=== PATIENT | female | born 2005 | race Caucasian/White ===

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

== ENCOUNTER → 2023-02-16 | Outpatient (CLI) | payer OTHER ==
--- NOTE | 2023-02-16 15:10 | US ---
EXAMINATION TYPE: US abdomen complete DATE OF EXAM: 02/16/2023 COMPARISON: CLINICAL HISTORY: K59.00. Generalized abdomen pain. TECHNIQUE: Multiple sonographic images of the abdomen are obtained. FINDINGS: EXAM MEASUREMENTS: Liver Length: 16.5 cm Gallbladder Wall: 0.2 cm CBD: 0.2 cm Spleen: 9.5 cm Right Kidney: 11.6 x 4.9 x 2.8 cm Left Kidney: 10.0 x 4.4 x 4.8 cm Pancreas: Limited visualization of head Liver: wnl Gallbladder: wnl Evidence for sonographic Dong's sign: neg CBD: wnl Spleen: Isoechoic circular lesion adjacent to spleen, accessory spleen? = 1.5 x 1.4 x 1.1 cm Right Kidney: No hydronephrosis or masses seen Left Kidney: No hydronephrosis or masses seen Upper IVC: wnl Abd Aorta: No AAA visualized at time of scan IMPRESSION: 1. Abdomen ultrasound as visualized appears unremarkable.
== END | disposition home or self-care (01) ==
LOC: RADUSWWP 08:09
PROVIDERS: ATTEND Family Medicine
DX: K59.00 Constipation, unspecified (principal)
CPT/HCPCS: 76700

== ENCOUNTER → 2023-12-07 | Outpatient (CLI) | payer OTHER ==
--- NOTE | 2023-12-07 15:52 | XR ---
EXAMINATION TYPE: XR knee complete LT DATE OF EXAM: 12/07/2023 COMPARISON: 02/04/2023 HISTORY: 18-year-old female M25.562, left knee pain TECHNIQUE: AP, oblique, and lateral views FINDINGS: The extensor mechanism is intact. No knee joint effusion. No acute fracture, subluxation, dislocation . IMPRESSION: No acute osseous abnormality seen.
== END | disposition home or self-care (01) ==
LOC: RADXRMAIN 12:33
PROVIDERS: ATTEND Family Medicine
DX: M25.562 Pain in left knee (principal)

== ENCOUNTER → 2024-02-15 | Outpatient (CLI) | payer OTHER ==
--- NOTE | 2024-02-15 16:19 | CT ---
EXAMINATION TYPE: CT abdomen pelvis w con CT DLP: 338.9 mGycm, Automated exposure control for dose reduction was used. DATE OF EXAM: 02/15/2024 2:18 PM COMPARISON: CT abdomen and pelvis 05/03/2022 CLINICAL INDICATION:Female, 18 years old with history of R10.813 RLQ TENDERNESS; RLQ pain TECHNIQUE: Axial CT abdomen pelvis w con;Sagittal and coronal reformats were created on a separate w orkstation. Contrast used:100ml mL of Isovue 370 with IV Contrast, (none if empty) Oral contrast used: with Oral Contrast (none if empty) FINDINGS: LOWER CHEST: Lungs are clear. No pleural effusions. ABDOMEN LIVER: Unremarkable GALLBLADDER AND BILE DUCTS: Unremarkable. PANCREAS: Unremarkable. SPLEEN: Unremarkable. ADRENAL GLANDS: Unremarkable. KIDNEYS AND URETERS: No evidence of hydronephrosis or renal calculus. The ureters are unremarkable. PELVIS BLADDER: Unremarkable REPRODUCTIVE: Unremarkable. ABDOMEN & PELVIS STOMACH AND BOWEL: Stomach and duodenum are unremarkable No evidence of bowel obstruction. PERITONEUM/RETROPERITONEUM: No evidence of pneumoperitoneum. Small amount of free fluid in the pelvis . Most frequently the amount of free fluid is physiologic, but remains nonspecific. VASCULATURE: No evidence of aortic aneurysm. MUSCULOSKELETAL: No acute osseous abnormalities LYMPH NODES: No gross evidence for lymphadenopathy. SOFT TISSUE/ABDOMINAL WALL: Unremarkable IMPRESSION: 1. No definite acute process is identified. 2. Small amount free fluid in the pelvis. No free air.
== END | disposition home or self-care (01) ==
LOC: RADCTMAIN 12:30
PROVIDERS: ATTEND Family Medicine
DX: R10.813 Right lower quadrant abdominal tenderness (principal); R10.31 Right lower quadrant pain
CPT/HCPCS: 74177; Q9967

== ENCOUNTER 2024-04-16 20:54 | Emergency (ER) | payer OTHER ==
[2024-04-16 21:22] VITALS: TEMP 98.1
--- NOTE | 2024-04-16 22:24 | ED ---
Skin/Abscess/FB HPI - General Source: patient, RN notes reviewed Mode of arrival: ambulatory Limitations: no limitations <Sofi Linares - Last Filed: 04/16/24 22:21> <Sanjay Chin - Last Filed: 04/16/24 22:56> - General Chief complaint: Skin/Abscess/Foreign Body Stated complaint: Rash Time Seen by Provider: 04/16/24 22:21 - History of Present Illness Initial comments: Quick [id number] female with no significant past medical history presenting with rash on left side of face x 2 days. States she woke up with a red "bump" near her left shinto and has since spread along the forehead and into the cheek. She believes she may have been bit by a spider because she states she lives in a basement and often sees spiders. She describes the rash as burning and itchy. Denies vision changes, nausea, vomiting, fever. She has never had this rash before. Denies recent travel. States she believes she had chickenpox as a child but denies shingles. (Sofi Linares) Dictation was produced using [employer] dictation software. please excuse any grammatical, word or spelling errors. Chief Complaint: 19-year-old female presents with left facial rash History of Present Illness: Patient 19-year-old female presents with left facial rash. Rash has been seemingly getting worse for the last 2 to 3 days. Denies any pain. States that it slightly itchy. States that it appears scaly in the morning. Denies that it is crusty. Patient has no other complaints. The ROS documented in this emergency department record has been reviewed and confirmed by me. Those systems with pertinent positive or negative responses have been documented in the HPI. All other systems are other negative and/or noncontributory. (Sanjay Chin) - Related Data Previous Rx's Medication Instructions Recorded Ibuprofen [Motrin] 600 mg PO Q8HR PRN #30 tab 05/15/22 Cephalexin [Keflex] 500 mg PO BID 5 Days #10 cap 06/25/22 Ketorolac [Toradol] 10 mg PO Q6HR #15 tab 09/06/22 Terbinafine 1% Cream [LamISIL] 1 applic TOPICAL BID 7 Days #15 gm 04/16/24 Allergies Allergy/AdvReac Type Severity Reaction Status Date / Time bee sting Allergy Severe Swelling Uncoded 04/16/24 21:03 Review of Systems ROS Other: All systems not noted in ROS Statement are negative. <Sofi Linares - Last Filed: 04/16/24 22:21> ROS Other: All systems not noted in ROS Statement are negative. <Sanjay Chin - Last Filed: 04/16/24 22:56> ROS Statement: Those systems with pertinent positive or pertinent negative responses have been documented in the HPI. Past Medical History Past Medical History: No Reported History Additional Past Medical History / Comment(s): UTI History of Any Multi-Drug Resistant Organisms: ESBL Date of last positivie culture/infection: 07/23/21 ESBL E.coli MDRO Source:: Urine Past Surgical History: No Surgical Hx Reported Additional Past Surgical History / Comment(s): wisdom teeth Past Psychological History: Anxiety, Depression Smoking Status: Current every day smoker, Vaper Past Alcohol Use History: Occasional Past Drug Use History: Marijuana <Sofi Linares - Last Filed: 04/16/24 22:21> General Exam Limitations: no limitations <Sofi Linares - Last Filed: 04/16/24 22:21> <Sanjay Chin - Last Filed: 04/16/24 22:56> - General Exam Comments Initial Comments: Visual Physical Exam Vital signs reviewed General: Well-appearing, nontoxic, no acute distress. Head: Normocephalic, atraumatic Eyes: PERRLA, EOMI ENT: Airway patent Chest: Nonlabored breathing Skin: normal skin tone Neuro: Alert and oriented 3 Musculoskeletal: No gross abnormalities (Sofi Linares) Visual Physical Exam Vital signs reviewed General: Well-appearing, nontoxic, no acute distress. Head: Normocephalic, atraumatic Eyes: PERRLA, EOMI ENT: Airway patent Chest: Nonlabored breathing Skin: No visual rash, normal skin tone Face: non Blanching erythematous slightly superficially scaly, nonindurated, raised Neuro: Alert and oriented 3 Musculoskeletal: No gross abnormalities (Sanjay Chin) Course Vital Signs 04/16/24 20:58 Temperature 98.1 F Pulse Rate 76 Respiratory 22 Rate Blood Pressure 146/77 O2 Sat by Pulse 100 Oximetry Medical Decision Making <VijaySofi - Last Filed: 04/16/24 22:21> <Sanjay Chin - Last Filed: 04/16/24 22:56> - Medical Decision Making I completed the quick note portion of this chart signed Sofi Linares PA-C (Sofi Linares) Was pt. sent in by a medical professional or institution (, PA, ACADEMIC SUPPORT ASSISTANT, urgent care, hospital, or longterm...) When possible be specific @ -No Did you speak to anyone other than the patient for history (EMS, parent, family, police, friend...)? What history was obtained from this source @ -No Did you review nursing and triage notes (agree or disagree)? Why? @ -I reviewed and agree with nursing and triage notes Were old charts reviewed (outside hosp., previous admission, EMS record, old EKG, old radiological studies, urgent care reports/EKG's, longterm records)? Report findings @ -No old charts were reviewed Differential Diagnosis (chest pain, altered mental status, abdominal pain women, abdominal pain men, vaginal bleeding, musculoskeletal, weakness, fever, dyspnea, syncope, headache, dizziness, GI bleed, back pain, seizure, CVA, palpatations, mental health)? @ -Cellulitis, folliculitis, viral exanthem EKG interpreted by me (3pts min.). @ -None done X-rays interpreted by me (1pt min.). @ -None done CT interpreted by me (1pt min.). @ -None done U/S interpreted by me (1pt. min.). @ -None done What testing was considered but not performed or refused? (CT, X-rays, U/S, labs)? Why? @ -None What meds were considered but not given or refused? Why? @ -None Did you discuss the management of the patient with other professionals (professionals i.e. , JASMEET, ACADEMIC SUPPORT ASSISTANT, lab, RT, psych nurse, socially responsible investment adviser, gluing machine operator automatic, teacher, student liaison officer, shoe caser)? Give summary @ -No Was smoking cessation discussed for >3mins.? @ -No Was critical care preformed (if so, how long)? @ -No Were there social determinants of health that impacted care today? How? (Homelessness, low income, unemployed, alcoholism, drug addiction, transportation, low edu. Level, literacy, decrease access to med. care, custodial, rehab)? @ -No Was there de-escalation of care discussed even if they declined (Discuss DNR or withdrawal of care, Hospice)? DNR status @ -No What co-morbidities impacted this encounter? (DM, HTN, Smoking, COPD, CAD, Cancer, CVA, ARF, Chemo, Hep., AIDS, mental health diagnosis, sleep apnea, morbid obesity)? @ -None Was patient admitted / discharged? Hospital course, mention meds given and route, prescriptions, significant lab abnormalities, going to OR and other pertinent info. @ -19-year-old female presents with left facial rash. Clinical presentation suspicious for facial fungal rash. Vital signs stable. Patient denies . Patient given topical terbinafine. At this point is not entirely clear what this rashes. Patient told to follow-up with dermatology. Undiagnosed new problem with uncertain prognosis? @ -No Drug Therapy requiring intensive monitoring for toxicity (Heparin, Nitro, Insulin, Cardizem)? @ -No Were any procedures done? @ -No Diagnosis/symptom? Acute, or Chronic, or Acute on Chronic? Uncomplicated (with out systemic symptoms) or Complicated (systemic symptoms)? @ -Facial rash. Side effects of treatment? @ -No Exacerbation, Progression, or Severe Exacerbation? @ -No Poses a threat to life or bodily function? How? (Chest pain, [place], [place], pneumonia, PE, COPD, DKA, ARF, appy, cholecystitis, CVA, Diverticulitis, Homicidal, Suicidal, threat to staff... and all critical care pts) @ -No (Sanjay Chin) Disposition <Sofi Linares - Last Filed: 04/16/24 22:21> Is patient prescribed a controlled substance at d/c from ED?: No Time of Disposition: 22:56 <Sanjay Chin - Last Filed: 04/16/24 22:56> Clinical Impression: Facial rash Disposition: HOME SELF-CARE Condition: Fair Instructions (If sedation given, give patient instructions): Acute Rash (ED) Prescriptions: Terbinafine 1% Cream [LamISIL] 1 applic TOPICAL BID 7 Days #15 gm Referrals: Tye Alfaro MD [Primary Care Provider] - 1-2 days Chet Alvarez MD [STAFF PHYSICIAN] - 1-2 days
[2024-04-17 00:05] VITALS: BP 108/69; PULSE 65; RESP 18
== END 2024-04-16 23:19 | disposition home or self-care (01) ==
LOC: EC 20:54
DX: R21 Rash and other nonspecific skin eruption (principal); F17.290 Nicotine dependence, other tobacco product, uncomplicated; Z91.030 Bee allergy status
CPT/HCPCS: 99282

== ENCOUNTER 2025-04-10 17:50 | Emergency (ER) | payer BC, OTHER ==
[2025-04-10] MEDS: SODIUM CHLORIDE 0.9% 1,000 ML IV ONE (19:04)
[2025-04-10] MEDS: DEXAMETHASONE SOD PHOSPHATE 10 MG/ML 1 ML VIAL IV STA (19:05)
[2025-04-10] MEDS: KETOROLAC 15 MG/ML 1 ML VIAL IVP STA (19:06)
[2025-04-10 19:17] LABS: Basophils # (A) 0.04 10*3/uL (0.00-0.10); Basophils % (A) 0.5 %; Eosinophils % (A) 1.3 %; HCT 40.1 % (37.2-46.3); Lymphocytes # (A) 2.15 10*3/uL (0.90-5.00); Lymphocytes % (A) 28.7 %; MCH 31.3 pg (27.0-32.0); MCHC 34.9 g/dL (32.0-37.0); MCV 89.5 fL (80.0-97.0); Mean Platelet Volume 9.5 fL (9.5-12.2); Monocytes # (A) 0.44 10*3/uL (0.20-1.00); Monocytes % (A) 5.9 %; Neutrophils # (A) 4.76 10*3/uL (1.80-7.70); Neutrophils % (A) 63.5 %; Platelet Count 384 10*3/uL (140-440); RBC 4.48 10*6/uL (4.10-5.20); RDW 12.3 % (11.5-14.5)
[2025-04-10 19:30] LABS: ALT 17 U/L (4-34); AST 25 U/L (14-36); African American GFR (CKD) >90 (>60 ml/min/1.73 sqM); Albumin 4.6 g/dL (3.5-5.0); Alkaline Phosphatase 46 U/L (38-126); Anion Gap 13 mmol/L; Blood Urea Nitrogen 14 mg/dL (7-17); Calcium 9.8 mg/dL (8.4-10.2); Carbon Dioxide 21 mmol/L (22-30); Chloride 105 mmol/L (98-107); Glucose 81 mg/dL (74-99); Non-African American GFR(CKD) >90 (>60 ml/min/1.73 sqM); Sodium 139 mmol/L (137-145); Total Bilirubin 0.5 mg/dL (0.2-1.3); Total Protein 7.4 g/dL (6.3-8.2)
[2025-04-10 19:33] LABS: INR 0.9 (<1.2); Prothrombin Time 10.3 sec (10.0-12.5)
--- NOTE | 2025-04-10 19:48 | XR ---
EXAMINATION TYPE: XR chest 2V DATE OF EXAM: 04/10/2025 7:42 PM COMPARISON: Chest radiographs from 01/15/2021 TECHNIQUE: XR chest 2V Frontal and lateral views of the chest. CLINICAL INDICATION:Female, 20 years old with history of L sided back and chest pain; FINDINGS: Lungs/Pleura: There is no evidence of pleural effusion, focal consolidation, or pneumothorax. Pulmonary vascularity: Unremarkable. Heart/mediastinum: Cardiomediastinal silhouette is unremarkable. Musculoskeletal: No acute osseous pathology. IMPRESSION: No acute cardiopulmonary disease/process. [facility], , 04/10/2025 7:45 PM
--- NOTE | 2025-04-10 20:20 | ED ---
Back Pain HPI - General Chief Complaint: Back Pain/Injury Stated Complaint: chest pain Time Seen by Provider: 04/10/25 18:02 Source: patient Limitations: no limitations - History of Present Illness Initial Comments: 20-year-old female presenting with chief complaint of left-sided chest sided back pain. This has been ongoing for about 3 days. Pain worsens with movement and deep breaths. Patient denies any injury or trauma. No cough congestion or sore throat. No fevers or chills. No difficulty breathing, she reports that she is taking shallow breaths because of the pain though. No lower extremity swelling. No use of oral contraceptives. No recent surgery or long travel. No history of blood clots. No numbness tingling or weakness. - Related Data Previous Rx's Medication Instructions Recorded Ibuprofen [Motrin] 600 mg PO Q8HR PRN #30 tab 05/15/22 Cephalexin [Keflex] 500 mg PO BID 5 Days #10 cap 06/25/22 Ketorolac [Toradol] 10 mg PO Q6HR #15 tab 09/06/22 Terbinafine 1% Cream [LamISIL] 1 applic TOPICAL BID 7 Days #15 gm 04/16/24 Allergies Allergy/AdvReac Type Severity Reaction Status Date / Time bee sting Allergy Severe Swelling Uncoded 04/10/25 17:58 Review of Systems ROS Statement: Those systems with pertinent positive or pertinent negative responses have been documented in the HPI. ROS Other: All systems not noted in ROS Statement are negative. Past Medical History Past Medical History: No Reported History Additional Past Medical History / Comment(s): UTI History of Any Multi-Drug Resistant Organisms: ESBL Date of last positivie culture/infection: 07/23/21 ESBL E.coli MDRO Source:: Urine Past Surgical History: No Surgical Hx Reported Additional Past Surgical History / Comment(s): wisdom teeth Past Psychological History: Anxiety, Depression Smoking Status: Current every day smoker, Vaper Past Alcohol Use History: Occasional Past Drug Use History: Marijuana General Exam Limitations: no limitations General appearance: alert, in no apparent distress Head exam: Present: atraumatic, normocephalic, normal inspection Eye exam: Present: normal appearance, EOMI Neck exam: Present: normal inspection. Absent: meningismus Respiratory exam: Present: normal lung sounds bilaterally, chest wall tenderness. Absent: respiratory distress, wheezes, rales, rhonchi, stridor Cardiovascular Exam: Present: regular rate, normal rhythm, normal heart sounds. Absent: systolic murmur, diastolic murmur, rubs, gallop, clicks Extremities exam: Absent: pedal edema Neurological exam: Present: alert, oriented X3 Psychiatric exam: Present: normal affect, normal mood Skin exam: Present: warm, dry, normal color Course Vital Signs 04/10/25 04/10/25 04/10/25 17:54 18:55 20:50 Temperature 98.0 F 98.3 F 98.2 F Pulse Rate 71 68 60 Respiratory 22 19 17 Rate Blood Pressure 114/75 112/73 100/69 O2 Sat by Pulse 100 100 99 Oximetry Medical Decision Making - Medical Decision Making Was pt. sent in by a medical professional or institution (JASMEET Jang, RN RECOVERY, urgent care, hospital, or snf...) When possible be specific @ -No Did you speak to anyone other than the patient for history (EMS, parent, family, police, friend...)? What history was obtained from this source @ -No Did you review nursing and triage notes (agree or disagree)? Why? @ -I reviewed and agree with nursing and triage notes Were old charts reviewed (outside hosp., previous admission, EMS record, old EKG, old radiological studies, urgent care reports/EKG's, snf records)? Report findings @ -No old charts were reviewed Differential Diagnosis (chest pain, altered mental status, abdominal pain women, abdominal pain men, vaginal bleeding, weakness, fever, dyspnea, syncope, headache, dizziness, GI bleed, back pain, seizure, CVA, palpatations, mental health, musculoskeletal)? @ -MDM Differential Chest Pain: Stable Angina, Unstable Angina, STEMI, NSTEMI Aortic Dissection, Pneumothorax, Musculoskeletal, Esophageal Spasm GERD, Cholecystitis, Pancreatitis, Zosterâ€¦ This is not meant to be an all-inclusive list. EKG interpreted by me (3pts min.). @ -EKG shows sinus rhythm with sinus arrhythmia with short AL interval. Ventricular rate 65. AL interval 109. QRS 95. QT 374. QTc 385 X-rays interpreted by me (1pt min.). @ -Chest x-ray shows no acute process CT interpreted by me (1pt min.). @ -None done U/S interpreted by me (1pt. min.). @ -None done What testing was considered but not performed or refused? (CT, X-rays, U/S, labs)? Why? @ -None What meds were considered but not given or refused? Why? @ -None Did you discuss the management of the patient with other professionals (pro fessionals i.e. , PA, RN RECOVERY, lab, RT, psych nurse, social sciences professor, vibrating screen operator, teacher, strike warfare/missile systems officer, case checker)? Give summary @ -No Was smoking cessation discussed for >3mins.? @ -No Was critical care preformed (if so, how long)? @ -No Were there social determinants of health that impacted care today? How? (Homelessness, low income, unemployed, alcoholism, drug addiction, transportation, low edu. Level, literacy, decrease access to med. care, long term, rehab)? @ -No Was there de-escalation of care discussed even if they declined (Discuss DNR or withdrawal of care, Hospice)? DNR status @ -No What co-morbidities impacted this encounter? (DM, HTN, Smoking, COPD, CAD, Cancer, CVA, ARF, Chemo, Hep., AIDS, mental health diagnosis, sleep apnea, morbid obesity)? @ -None Was patient admitted / discharged? Hospital course, mention meds given and route, prescriptions, significant lab abnormalities, going to OR and other pertinent info. @ -20-year-old female presenting with chief complaint of left-sided back and chest pain for 3 days. No injury or trauma. Reproducible on exam. History and physical examination were conducted and heart and lungs were clear to auscultation. No leukocytosis or anemia. D-dimer less than 0.17. Negative troponin. Chest x-ray shows no acute process and EKG shows sinus rhythm with no acute ischemic changes. On reassessment after Toradol and Decadron she reports improvement in her pain. She is educated on today's findings and supportive management at home. Follow-up with PCP. Report back to ER with any new or worsening symptoms. Discussed return parameters and answered all questions. Patient conveyed verbal understanding and agreed to the plan. I discussed this case in detail with my attending Dr. Nicolas Undiagnosed new problem with uncertain prognosis? @ -No Drug Therapy requiring intensive monitoring for toxicity (Heparin, Nitro, Insulin, Cardizem)? @ -No Were any procedures done? @ -No Diagnosis/symptom? @ -Chest wall pain Acute, or Chronic, or Acute on Chronic? @ -Acute Uncomplicated (without systemic symptoms) or Complicated (systemic symptoms)? @ -Uncomplicated Side effects of treatment? @ -No Exacerbation, Progression, or Severe Exacerbation? @ -No Poses a threat to life or bodily function? How? (Chest pain, [place], [place], pneumonia, PE, COPD, DKA, ARF, appy, cholecystitis, CVA, Diverticulitis, Homicidal, Suicidal, threat to staff... and all critical care pts) @ -Unlikely - Lab Data Result diagrams: 04/10/25 19:11 04/10/25 19:11 Lab Results 04/10/25 04/10/25 04/10/25 Range/Units 19:11 19:11 19:11 WBC 7.50 (4.50-10.00) 10*3/uL RBC 4.48 (4.10-5.20) 10*6/uL Hgb 14.0 (12.0-15.0) g/dL Hct 40.1 (37.2-46.3) % MCV 89.5 (80.0-97.0) fL MCH 31.3 (27.0-32.0) pg MCHC 34.9 (32.0-37.0) g/dL Plt Count 384 (140-440) 10*3/uL MPV 9.5 (9.5-12.2) fL Immature Gran % (Auto) 0.1 % Neutrophils % 63.5 % Lymphocytes % 28.7 % Monocytes % 5.9 % Eosinophils % 1.3 % Basophils % 0.5 % Immature Gran # 0.01 (0.00-0.04) 10*3/uL Neutrophils # 4.76 (1.80-7.70) 10*3/uL Lymphocytes # 2.15 (0.90-5.00) 10*3/uL Monocytes # 0.44 (0.20-1.00) 10*3/uL Eosinophils # 0.10 (0.04-0.35) 10*3/uL Basophils # 0.04 (0.00-0.10) 10*3/uL PT 10.3 (10.0-12.5) sec INR 0.9 (<1.2) APTT 24.0 (22.0-30.0) sec D-Dimer <0.17 (<0.60) mg/L FEU Sodium 139 (137-145) mmol/L Potassium 4.0 (3.5-5.1) mmol/L Chloride 105 (98-107) mmol/L Carbon Dioxide 21 L (22-30) mmol/L Anion Gap 13 mmol/L BUN 14 (7-17) mg/dL Creatinine 0.61 (0.52-1.04) mg/dL Est GFR (CKD-EPI)AfAm >90 (>60 ml/min/1.73 sqM) Est GFR (CKD-EPI)NonAf >90 (>60 ml/min/1.73 sqM) Glucose 81 (74-99) mg/dL Calcium 9.8 (8.4-10.2) mg/dL Total Bilirubin 0.5 (0.2-1.3) mg/dL AST 25 (14-36) U/L ALT 17 (4-34) U/L Alkaline Phosphatase 46 (38-126) U/L Troponin I (0.000-0.034) ng/mL Total Protein 7.4 (6.3-8.2) g/dL Albumin 4.6 (3.5-5.0) g/dL 04/10/25 Range/Units 19:11 WBC (4.50-10.00) 10*3/uL RBC (4.10-5.20) 10*6/uL Hgb (12.0-15.0) g/dL Hct (37.2-46.3) % MCV (80.0-97.0) fL MCH (27.0-32.0) pg MCHC (32.0-37.0) g/dL Plt Count (140-440) 10*3/uL MPV (9.5-12.2) fL Immature Gran % (Auto) % Neutrophils % % Lymphocytes % % Monocytes % % Eosinophils % % Basophils % % Immature Gran # (0.00-0.04) 10*3/uL Neutrophils # (1.80-7.70) 10*3/uL Lymphocytes # (0.90-5.00) 10*3/uL Monocytes # (0.20-1.00) 10*3/uL Eosinophils # (0.04-0.35) 10*3/uL Basophils # (0.00-0.10) 10*3/uL PT (10.0-12.5) sec INR (<1.2) APTT (22.0-30.0) sec D-Dimer (<0.60) mg/L FEU Sodium (137-145) mmol/L Potassium (3.5-5.1) mmol/L Chloride (98-107) mmol/L Carbon Dioxide (22-30) mmol/L Anion Gap mmol/L BUN (7-17) mg/dL Creatinine (0.52-1.04) mg/dL Est GFR (CKD-EPI)AfAm (>60 ml/min/1.73 sqM) Est GFR (CKD-EPI)NonAf (>60 ml/min/1.73 sqM) Glucose (74-99) mg/dL Calcium (8.4-10.2) mg/dL Total Bilirubin (0.2-1.3) mg/dL AST (14-36) U/L ALT (4-34) U/L Alkaline Phosphatase (38-126) U/L Troponin I <0.012 (0.000-0.034) ng/mL Total Protein (6.3-8.2) g/dL Albumin (3.5-5.0) g/dL Disposition Clinical Impression: Chest wall pain Disposition: HOME SELF-CARE Condition: Good Instructions (If sedation given, give patient instructions): Chest Wall Pain (ED) Additional Instructions: Follow-up with PCP. Report back to ER with any new or worsening symptoms. Take Motrin and Tylenol as needed Is patient prescribed a controlled substance at d/c from ED?: No Referrals: Tye Alfaro MD [Primary Care Provider] - 1-2 days Time of Disposition: 20:20
[2025-04-10 21:04] VITALS: BP 100/69; PULSE 60; RESP 17; TEMP 98.2
== END 2025-04-10 21:04 | disposition home or self-care (01) ==
LOC: EC 17:50
DX: R07.89 Other chest pain (principal); F17.290 Nicotine dependence, other tobacco product, uncomplicated; Z91.030 Bee allergy status
CPT/HCPCS: 36415; 85379; 80053; 84484; 85025; 85610; 85730; 71046; 99285; 96374; 96375; 96361; J1100; J1885

== ENCOUNTER 2025-05-25 14:11 | Emergency (ER) | payer BC, OTHER ==
[2025-05-25 14:53] VITALS: BP 118/78; PULSE 98; RESP 16; TEMP 97.8
[2025-05-25 15:08] LABS: Basophils # (A) 0.03 10*3/uL (0.00-0.10); Basophils % (A) 0.4 %; Eosinophils # (A) 0.05 10*3/uL (0.04-0.35); Eosinophils % (A) 0.7 %; HGB 14.1 g/dL (12.0-15.0); Lymphocytes # (A) 1.57 10*3/uL (0.90-5.00); Lymphocytes % (A) 21.9 %; MCH 30.9 pg (27.0-32.0); MCHC 35.3 g/dL (32.0-37.0); MCV 87.7 fL (80.0-97.0); Mean Platelet Volume 9.6 fL (9.5-12.2); Monocytes # (A) 0.35 10*3/uL (0.20-1.00); Monocytes % (A) 4.9 %; Neutrophils # (A) 5.17 10*3/uL (1.80-7.70); Platelet Count 379 10*3/uL (140-440); RBC 4.56 10*6/uL (4.10-5.20); WBC 7.18 10*3/uL (4.50-10.00)
[2025-05-25 15:17] LABS: HCG,Qualitative Serum Not Detected
[2025-05-25 15:21] LABS: ALT 20 U/L (4-34); AST 27 U/L (14-36); African American GFR (CKD) >90 (>60 ml/min/1.73 sqM); Albumin 4.7 g/dL (3.5-5.0); Alkaline Phosphatase 54 U/L (38-126); Anion Gap 14 mmol/L; Blood Urea Nitrogen 9 mg/dL (7-17); Calcium 10.2 mg/dL (8.4-10.2); Carbon Dioxide 22 mmol/L (22-30); Chloride 104 mmol/L (98-107); Glucose 158 mg/dL (74-99); Non-African American GFR(CKD) >90 (>60 ml/min/1.73 sqM); Potassium 3.6 mmol/L (3.5-5.1); Sodium 140 mmol/L (137-145); Total Bilirubin 0.3 mg/dL (0.2-1.3); Total Protein 7.2 g/dL (6.3-8.2)
--- NOTE | 2025-05-25 16:20 | ED ---
Chest Pain HPI - General Source: patient Mode of arrival: ambulatory Limitations: no limitations <Sandra Briceño - Last Filed: 05/25/25 16:19> <Jennie Arauz - Last Filed: 05/25/25 19:32> - General Chief Complaint: Chest Pain Stated Complaint: Chest Pain/SOB Time Seen by Provider: 05/25/25 16:19 - History of Present Illness Initial Comments: 20-year-old female presenting with chief complaint of chest tightness and shortness of breath. Symptoms started today. She is also complaining of numbness in her hands and feet. She does admit to cough. No fever. Denies . (Sandra Briceño) - Related Data Previous Rx's Medication Instructions Recorded Ibuprofen [Motrin] 600 mg PO Q8HR PRN #30 tab 05/15/22 Cephalexin [Keflex] 500 mg PO BID 5 Days #10 cap 06/25/22 Ketorolac [Toradol] 10 mg PO Q6HR #15 tab 09/06/22 Terbinafine 1% Cream [LamISIL] 1 applic TOPICAL BID 7 Days #15 gm 04/16/24 Allergies Allergy/AdvReac Type Severity Reaction Status Date / Time bee sting Allergy Severe Swelling Uncoded 04/10/25 17:58 Review of Systems ROS Other: All systems not noted in ROS Statement are negative. <Sandra Briceño - Last Filed: 05/25/25 16:19> ROS Other: All systems not noted in ROS Statement are negative. <Jennie Arauz - Last Filed: 05/25/25 19:32> ROS Statement: Those systems with pertinent positive or pertinent negative responses have been documented in the HPI. EKG Findings - EKG Comments: EKG Findings:: Sinus tachycardia, rate 116 bpm, intervals within acceptable limits, no significant ST elevations or depressions, no arrhythmia, no ischemic changes <Jennie Arauz - Last Filed: 05/25/25 19:32> Past Medical History Past Medical History: No Reported History Additional Past Medical History / Comment(s): UTI History of Any Multi-Drug Resistant Organisms: ESBL Date of last positivie culture/infection: 07/23/21 ESBL E.coli MDRO Source:: Urine Past Surgical History: No Surgical Hx Reported Additional Past Surgical History / Comment(s): wisdom teeth Past Psychological History: Anxiety, Depression Smoking Status: Current every day smoker, Vaper Past Alcohol Use History: Occasional Past Drug Use History: Marijuana <Sandra Briceño - Last Filed: 05/25/25 16:19> General Exam Limitations: no limitations <Sandra Briceño - Last Filed: 05/25/25 16:19> - General Exam Comments Initial Comments: Visual Physical Exam Vital signs reviewed General: Well-appearing, nontoxic, no acute distress. Head: Normocephalic, atraumatic Eyes: PERRLA, EOMI ENT: Airway patent Chest: Nonlabored breathing Skin: No visual rash, normal skin tone Neuro: Alert and oriented 3 Musculoskeletal: No gross abnormalities (Sandra Briceño) Course Vital Signs 05/25/25 14:51 Temperature 97.8 F Pulse Rate 98 Respiratory 16 Rate Blood Pressure 118/78 O2 Sat by Pulse 98 Oximetry Chest Pain MDM <Sandra Briceño - Last Filed: 05/25/25 16:19> <Jennie Arauz - Last Filed: 05/25/25 19:32> - MDM I performed the quick note portion of this visit, electronically signed Sandra Briceño PA-C (Sandra Briceño) Was pt. sent in by a medical professional or institution ([facility] Jang, [employer], urgent care, hospital, or group home...) When possible be specific @ -[No] Did you speak to anyone other than the patient for history (EMS, parent, family, police, friend...)? What history was obtained from this source @ -[No] Did you review nursing and triage notes (agree or disagree)? Why? @ -[I reviewed nursing and triage notes] Were old charts reviewed (outside hosp., previous admission, EMS record, old EKG, old radiological studies, urgent care reports/EKG's, group home records)? Report findings @ -[Medical records reviewed] Differential Diagnosis (chest pain, altered mental status, abdominal pain women, abdominal pain men, vaginal bleeding, weakness, fever, dyspnea, syncope, headache, dizziness, GI bleed, back pain, seizure, CVA, palpatations, mental health, musculoskeletal)? @ -[not applicable] EKG interpreted by me (3pts min.). @ -[As above] X-rays interpreted by me (1pt min.). @ -[None done] CT interpreted by me (1pt min.). @ -[None done] U/S interpreted by me (1pt. min.). @ -[None done] What testing was considered but not performed or refused? (CT, X-rays, U/S, labs)? Why? @ -[None] What meds were considered but not given or refused? Why? @ -[None] Did you discuss the management of the patient with other professionals (professionals i.e. , PA, [employer], lab, RT, psych nurse, social services counselor, business banking representative, teacher, escrow officer, adult protective caseworker)? Give summary @ -[No] Was smoking cessation discussed for >3mins.? @ -[No] Was critical care preformed (if so, how long)? @ -[No] Were there social determinants of health that impacted care today? How? (Homelessness, low income, unemployed, alcoholism, drug addiction, transportation, low edu. Level, literacy, decrease access to med. care, half-way, rehab)? @ -[No] Was there de-escalation of care discussed even if they declined (Discuss DNR or withdrawal of care, Hospice)? @ -[No] What co-morbidities impacted this encounter? (DM, HTN, Smoking, COPD, CAD, Cancer, CVA, ARF, Chemo, Hep., AIDS, mental health diagnosis, sleep apnea, morbid obesity)? @ -[None] Was patient admitted / discharged? Hospital course, mention meds given and r oute, prescriptions, significant lab abnormalities, going to OR and other pertinent info. @ -[hospital course] Undiagnosed new problem with uncertain prognosis? @ -[No] Drug Therapy requiring intensive monitoring for toxicity (Heparin, Nitro, Insulin, Cardizem)? @ -[No] Were any procedures done? @ -[No] Diagnosis/symptom? @ -[default] Acute, or Chronic, or Acute on Chronic? @ -[default] Uncomplicated (without systemic symptoms) or Complicated (systemic symptoms)? @ -[default] Side effects of treatment? @ -[No] Exacerbation, Progression, or Severe Exacerbation? @ -[No] Poses a threat to life or bodily function? How? (Chest pain, [place], [place], pneumonia, PE, COPD, DKA, ARF, appy, cholecystitis, CVA, Diverticulitis, Homicidal, Suicidal, threat to staff... and all critical care pts) @ -[No] (Jennie Arauz) Disposition <Sandra Briceño - Last Filed: 05/25/25 16:19> Is patient prescribed a controlled substance at d/c from ED?: No <Jennie Arauz - Last Filed: 05/25/25 19:32> Clinical Impression: Chest tightness, Cough Disposition: HOME SELF-CARE Condition: Good Instructions (If sedation given, give patient instructions): Chest Pain (ED), Costochondritis (ED) Additional Instructions: Every disease is a spectrum and a small chance still exists that a serious condition could develop, for this reason, please monitor yourself closely for new, changing or worsening symptoms, symptoms that persist beyond 48 hours, worsening symptoms, difficulty in breathing, coughing up blood, swelling in your legs fever, inability to tolerate/keep down fluids or your medications, in ability to follow up with outpatient providers as instructed and should you experience these symptoms or should you have any further concerns for your wellbeing please return to the ED or call 911 immediately. Your pain can be treated with ibuprofen and acetaminophen. You can take up to 400-600 mg of ibuprofen (Advil, Motrin) 3 times daily (every 8 hours) but can also use lower doses if this relieves your pain. Some people prefer naproxen (Aleve, Naprosyn) which can be taken in doses of 500 mg up to twice a day. Do not take both of these medicines together, and do not combine either with ket orolac (Toradol), meloxicam (Mobic), or indomethacin (Tivorbex). Some people can develop stomach discomfort with higher doses of either ibuprofen or naproxen, if this develops decrease your dose or stop taking it. If you need to take this dose daily for more than a week, please schedule an appointment for re- evaluation with your PCP. Please take these medications with food. You can take up to 1000 mg of acetaminophen (Tylenol) every 6 hours. Be careful as this is included in some medicines like Nyquil, [place], Percocet, Vicodin, STANBACK, Goody's Powders, and Excedrin. You can also use lidocaine patches for topical pain. You can purchase 4% patches over the counter at most drug stores. These can be helpful for pain from your muscles or bones. PLEASE call your primary care physician as soon as possible to arrange / discuss plan for followup appointment. Appointment in the next 1-3 days is strongly encouraged if possible. PLEASE let us know here before you leave if there is anything further we can do to be of any assistance. Take care and feel Better! Referrals: Tye Alfaro MD [Primary Care Provider] - 1-2 days
[2025-05-25 16:53] LABS: Appearance,Urine Cloudy (Clear); Bacteria,Urine Rare /hpf; Bilirubin,Urine Negative (Negative); Blood,Urine Negative (Negative); Color,Urine Colorless; Glucose,Urine (UA) Negative (Negative); Ketones,Urine Trace (Negative); Leukocyte Esterase,Urine Negative (Negative); Nitrite,Urine Negative (Negative); Protein,Urine Negative (Negative); RBC,Urine <1 /hpf (0-5); Specific Gravity,Urine 1.006 (1.001-1.035); Squamous Epithelial Cell,Urine 10 /hpf (0-4); Urobilinogen,Urine <2.0 mg/dL (<2.0); WBC,Urine 3 /hpf (0-5)
--- NOTE | 2025-05-25 17:07 | XR ---
EXAMINATION TYPE: XR chest 2V DATE OF EXAM: 05/25/2025 5:04 PM COMPARISON: Prior chest radiograph 04/10/2025. CLINICAL INDICATION: Female, 20 years old with history of chest pain; [facility] TECHNIQUE: XR chest 2V Frontal and lateral views of the chest. FINDINGS: Lungs/Pleura: There is no evidence of pleural effusion, focal consolidation, or pneumothorax. Pulmonary vascularity: Unremarkable. Heart/mediastinum: Cardiomediastinal silhouette is unremarkable. Musculoskeletal: No acute osseous pathology. Other findings: None IMPRESSION: No acute cardiopulmonary disease/process. [facility], , 05/25/2025 5:04 PM
[2025-05-25] MEDS: KETOROLAC 15 MG/ML 1 ML VIAL IM STA (19:48)
[2025-05-25] MEDS: DEXAMETHASONE SOD PHOSPHATE 10 MG/ML 1 ML VIAL IM STA (19:48)
[2025-05-25] MEDS: DEXAMETHASONE SOD PHOSPHATE 10 MG/ML 1 ML VIAL IVP STA (19:56)
[2025-05-25] MEDS: KETOROLAC 15 MG/ML 1 ML VIAL IVP STA (19:56)
== END 2025-05-25 20:03 | disposition home or self-care (01) ==
LOC: EC 14:11
DX: R07.89 Other chest pain (principal); R05.9 Cough, unspecified; F17.290 Nicotine dependence, other tobacco product, uncomplicated; Z91.030 Bee allergy status
CPT/HCPCS: 36415; 93005; 80053; 85025; 81001; 84703; 71046; 99285; 96372 ×2; J1100; J1885